=== PATIENT | female | born 1965 | race Caucasian/White ===

== ENCOUNTER 2024-12-22 11:02 | Day surgery (SDC) | payer MEDICARE ==
[2024-12-22] MEDS ORDERED: LIDOCAINE HCL 2% 100 MG/5 ML IJ ONE (11:03)
[2024-12-22] MEDS ORDERED: propofoL IV ONE (13:22)
--- NOTE | 2024-12-22 15:05 | XRAY ---
Indication: Bilateral L4-S1 MBB. Intraoperative fluoroscopy provided for 26 seconds. 2 digital spot image submitted for interpretation demonstrates posterior needle tips projecting over expected left and right L4-S1 nerve roots. Correlate with intraoperative findings/report.
--- NOTE | 2024-12-22 15:35 | XRAY ---
26 seconds of fluoroscopy was used in surgery for a bilateral L4-S1 MBB.
== END 2024-12-22 14:00 | disposition home or self-care (01) ==
LOC: SDC-PAIN 11:02
PROVIDERS: ATTEND Psychiatry & Neurology Pain Medicine
DX: M47.816 Spondylosis without myelopathy or radiculopathy, lumbar region (principal)
CPT/HCPCS: 64493; 64494; 72020; 77002; J2704

== ENCOUNTER 2025-01-12 13:02 | Day surgery (SDC) | payer MEDICARE ==
[2025-01-12] MEDS ORDERED: BUPIVACAINE 0.5% VIAL IJ ONE (13:03)
[2025-01-12] MEDS ORDERED: propofoL IV ONE (14:34)
--- NOTE | 2025-01-12 16:26 | XRAY ---
Indication: Bilateral L4-S1 MBB. Intraoperative fluoroscopy provided for 16 seconds. Single digital spot image submitted for interpretation demonstrates posterior needle tips projecting over expected left and right L4-S1 nerve roots. Correlate with intraoperative findings/report.
--- NOTE | 2025-01-12 16:29 | XRAY ---
16 seconds of fluoroscopy was used in surgery for a bilateral L4-S1 MBB.
== END 2025-01-12 18:03 | disposition home or self-care (01) ==
LOC: SDC-PAIN 13:02
PROVIDERS: ATTEND Psychiatry & Neurology Pain Medicine
DX: M47.816 Spondylosis without myelopathy or radiculopathy, lumbar region (principal)
CPT/HCPCS: 64493; 64494; 72020; J2704

== ENCOUNTER 2025-02-09 10:42 | Day surgery (SDC) | payer MEDICARE ==
[2025-02-09] MEDS ORDERED: Depo-Medrol 40 MG/ML IM ONE (10:43)
[2025-02-09] MEDS ORDERED: BUPIVACAINE 0.5% VIAL IJ ONE (10:43)
[2025-02-09] MEDS ORDERED: LIDOCAINE HCL 1% AMPUL 5 ML IJ ONE (10:43)
[2025-02-09] MEDS ORDERED: propofoL IV ONE ×2 (13:48→13:56)
--- NOTE | 2025-02-09 14:49 | XRAY ---
Indication: Left L4-S1 RFA. Intraoperative fluoroscopy provided for 34 seconds. 4 digital spot images submitted for interpretation demonstrates posterior needle tips projecting over expected left L4-S1 nerve roots. Correlate with intraoperative findings/report.
--- NOTE | 2025-02-09 14:55 | XRAY ---
34 seconds of fluoroscopy was used in surgery for a left L4-S1 RFA.
[2025-02-09] MEDS ORDERED: Lactated Ringers 1,000 ML IV ONE (16:12)
== END 2025-02-09 14:25 | disposition home or self-care (01) ==
LOC: SDC-PAIN 10:42
PROVIDERS: ATTEND Psychiatry & Neurology Pain Medicine
DX: M47.817 Spondylosis without myelopathy or radiculopathy, lumbosacral region (principal)
CPT/HCPCS: 64635; 64636; 72100; J2704

== ENCOUNTER 2025-02-10 11:01 | Day surgery (SDC) | payer MEDICARE ==
[2025-02-10] MEDS ORDERED: BUPIVACAINE 0.5% VIAL IJ ONE (11:02)
[2025-02-10] MEDS ORDERED: Depo-Medrol 40 MG/ML IM ONE (11:02)
[2025-02-10] MEDS ORDERED: LIDOCAINE HCL 1% AMPUL 5 ML IJ ONE (11:02)
[2025-02-10] MEDS ORDERED: propofoL IV ONE ×2 (13:30→13:38)
[2025-02-10] MEDS ORDERED: Lactated Ringers 1,000 ML IV ONE (13:42)
--- NOTE | 2025-02-10 16:23 | XRAY ---
Indication: Right L4-S1 RFA. Intraoperative fluoroscopy provided for 21 seconds. 4 digital spot image submitted for interpretation demonstrates posterior needle tips projecting over expected right L4-S1 nerve roots. Correlate with intraoperative findings/report.
--- NOTE | 2025-02-10 16:39 | XRAY ---
21 seconds of fluoroscopy used in surgery for a right L4-S1 RFA.
== END 2025-02-10 14:05 | disposition home or self-care (01) ==
LOC: SDC-PAIN 11:01
PROVIDERS: ATTEND Psychiatry & Neurology Pain Medicine
DX: M47.817 Spondylosis without myelopathy or radiculopathy, lumbosacral region (principal)
CPT/HCPCS: 64635; 64636; 72100; J2704